=== PATIENT | male | born 1990 | race Caucasian/White ===

== ENCOUNTER 2020-07-10 14:39 | Emergency (ER) | payer MEDICAID ==
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
[2020-07-10 15:18] LABS: BUPRENORPHINE,URINE NEGATIVE (NEGATIVE); MARIJUANA,URINE POSITIVE (NEGATIVE); METHYLENEDIOXYMETHAMP,UR NEGATIVE (NEGATIVE); PHENCYCLIDINE,URINE NEGATIVE (NEGATIVE)
[2020-07-10 15:27] LABS: ANION GAP 14.4 mmol/L (5-15); CHLORIDE,CL 105 mmol/L (98-107); SODIUM,NA 143 mmol/L (136-145)
--- NOTE | 2020-07-10 15:57 | CT ---
[id number] CT/CT Head WO IV EXAM: CT Head WO IV CLINICAL DATA: TRAUMA COMPARISON: No previous similar exam is available for comparison. FINDINGS: There is no mass or mass effect. There is no hemorrhage or hydrocephalus. There are no extra-axial fluid collections. There are no sites of abnormal attenuation. IMPRESSION: NO PLAIN CT EVIDENCE OF ACUTE INTRACRANIAL PROCESS. Michael Stacy MD 07/10/20 [id number] Thank you for allowing us to participate in the care of your patient.
--- NOTE | 2020-07-10 15:59 | CT ---
[id number] CT/CT Cervical Spine WO IV Exam: CT Cervical Spine WO IV Clinical Data: TRAUMA COMPARISON: NO PREVIOUS SIMILAR EXAM IS AVAILABLE FINDINGS: No fracture or subluxation is seen There is a normal appearance of the C1-C2 articulation There is a normal appearance of the prevertebral soft tissues IMPRESSION: NO FRACTURE OR SUBLUXATION IDENTIFIED Michael Stacy MD 07/10/20 [id number] Thank you for allowing us to participate in the care of your patient.
[2020-07-10] MEDS ORDERED: Ondansetron 4 MG Tab.DIS PO ONE (16:01)
[2020-07-10] MEDS ORDERED: Acetaminophen 500 MG Tab PO ONE (16:01)
== END 2020-07-10 16:10 | disposition swing bed (61) ==
LOC: VM.ED 14:39
DX: F12.90 Cannabis use, unspecified, uncomplicated (principal); Z91.030 Bee allergy status; Z91.048 Other nonmedicinal substance allergy status
CPT/HCPCS: 36415; 70450; 72125; 80053; 80305-QW; 80307; 81003; 82150; 83690; 83735; 85025; 86140; 99284-25; A9270-GY